=== PATIENT | female | born 2000 ===

== ENCOUNTER 2024-09-28 08:59 | Outpatient (CLI) | payer OTHER | END 2024-09-28 09:00 | disposition home or self-care (01) | LOC: PRENATAL 08:59 | PROVIDERS: ATTEND Obstetrics & Gynecology Maternal & Fetal Medicine | DX: O36.80X0 Pregnancy with inconclusive fetal viability, not applicable or unspecified (principal); Z36.82 Encounter for antenatal screening for nuchal translucency; Z14.8 Genetic carrier of other disease; Z3A.12 12 weeks gestation of pregnancy ==

== ENCOUNTER → 2024-11-18 06:49 | Outpatient (CLI) | payer OTHER | END | disposition home or self-care (01) | LOC: PRENATAL 06:49 | PROVIDERS: ATTEND Obstetrics & Gynecology Maternal & Fetal Medicine | DX: O44.00 Complete placenta previa NOS or without hemorrhage, unspecified trimester (principal); Z3A.20 20 weeks gestation of pregnancy ==

== ENCOUNTER 2024-12-30 09:20 | Outpatient (CLI) | payer OTHER | END 2024-12-30 09:21 | disposition home or self-care (01) | LOC: PRENATAL 09:20 | PROVIDERS: ATTEND Obstetrics & Gynecology Maternal & Fetal Medicine | DX: O26.849 Uterine size-date discrepancy, unspecified trimester (principal); O36.8130 Decreased fetal movements, third trimester, not applicable or unspecified; O28.3 Abnormal ultrasonic finding on antenatal screening of mother; Z3A.26 26 weeks gestation of pregnancy ==

== ENCOUNTER 2025-01-18 20:45 | Outpatient (CLI) | payer OTHER ==
[~2025-01-18] VITALS: Ht 165.1 cm; Wt 75.7 kg
[2025-01-18 21:09] VITALS: BP 109/65
[2025-01-18] MEDS ORDERED: RINGERS SOLUTION,LACTATED 1,000 ML IV SCH (22:00)
[2025-01-18] MEDS ORDERED: FOLIC ACID0.8 M1 PO (22:51)
[2025-01-18] MEDS ORDERED: PRENATAL TABLE1 EAC1 PO (22:51)
[2025-01-18 23:28] VITALS: BP 90/57
[2025-01-19 00:02] LABS: URINE APPEARANCE Cloudy; URINE BILIRRUBIN Negative (NEGATIVE); URINE BLOOD Negative; URINE COLOR Yellow; URINE GLUCOSE Negative (NEGATIVE); URINE KETONE Trace (NEGATIVE); URINE LEUKOCYTE Small; URINE NITRATE Negative; URINE PROTEIN Negative (NEGATIVE); URINE UROBILINOGEN 1.0 E.U./dl
[2025-01-19 00:05] LABS: URINE BACTERIA 3939.4 uL (0.0-1933); URINE EPITHELIAL CELLS 34.6 uL (0.0-38.8); URINE RBC 28.1 uL (0.0-20.8); URINE WBC 230.9 uL (0.0-23.2)
[2025-01-19 00:06] LABS: BASO % 0.3 % (0.1-1.2); EOS # 0.60 (0.04-0.54); EOS % 4.5 % (0.7-7.0); LYMPH # 3.19 (1.18-3.74); LYMPH % 23.9 % (19.3-53.1); MEAN PLATELET VOLUME 10.40 fl (9.4-12.4); MONO # 1.05 (0.24-0.82); MONO % 7.9 % (4.7-12.5); NEUT # 8.41 (1.56-6.13); NEUT % 62.8 % (34.0-71.1); RED CELL DISTRIBUTION WIDTH 12.8 % (11.6-14.4)
[2025-01-19 00:33] LABS: URINE CAST 0.73 uL (0.0-1.40)
[2025-01-19 00:34] LABS: URINE CRYSTALS MODERATE /HPF
[2025-01-19 03:25] VITALS: BP 90/48; O2SAT 100
[2025-01-19 06:20] VITALS: BP 93/59; O2SAT 99
[2025-01-19] MEDS ORDERED: CEFTRIAXONE SODIUM 1,000 MG VIAL IV ONE (09:15)
[2025-01-19 12:00] VITALS: BP 93/59
== END 2025-01-19 11:06 | disposition home or self-care (01) ==
LOC: OBS/DEL 20:45
PROVIDERS: ATTEND Obstetrics & Gynecology
DX: O23.43 Unspecified infection of urinary tract in pregnancy, third trimester (principal); N39.0 Urinary tract infection, site not specified; O26.849 Uterine size-date discrepancy, unspecified trimester; O36.8130 Decreased fetal movements, third trimester, not applicable or unspecified; O26.899 Other specified pregnancy related conditions, unspecified trimester; Z3A.29 29 weeks gestation of pregnancy

== ENCOUNTER → 2025-02-17 09:12 | Outpatient (CLI) | payer OTHER ==
[~2025-02-17 09:12] MED LIST: FOLIC ACID0.8 M1 PO; PRENATAL TABLE1 EAC1 PO
== END | disposition home or self-care (01) ==
LOC: PRENATAL 09:12
PROVIDERS: ATTEND Obstetrics & Gynecology Maternal & Fetal Medicine
DX: O26.843 Uterine size-date discrepancy, third trimester (principal); O36.8130 Decreased fetal movements, third trimester, not applicable or unspecified; Z3A.33 33 weeks gestation of pregnancy

== ENCOUNTER 2025-03-24 09:00 | Inpatient (IN) | payer OTHER ==
[~2025-03-24] VITALS: Ht 165.1 cm; Wt 84.8 kg
[2025-03-30 02:34] VITALS: BP 101/64
[2025-03-30] MEDS ORDERED: RINGERS SOLUTION,LACTATED 1,000 ML IV SCH (03:00)
[2025-03-30] MEDS ORDERED: AMPICILLIN SODIUM 2,000 MG VIAL IV ONE (03:00)
[2025-03-30 03:19] LABS: BASO % 0.3 % (0.1-1.2); EOS # 0.52 (0.04-0.54); EOS % 4.7 % (0.7-7.0); LYMPH # 2.62 (1.18-3.74); LYMPH % 23.5 % (19.3-53.1); MEAN PLATELET VOLUME 10.30 fl (9.4-12.4); MONO # 1.07 (0.24-0.82); MONO % 9.6 % (4.7-12.5); NEUT # 6.84 (1.56-6.13); NEUT % 61.5 % (34.0-71.1); RED CELL DISTRIBUTION WIDTH 12.7 % (11.6-14.4)
[2025-03-30 03:48] LABS: INR < 0.93
[2025-03-30 03:54] LABS: ALT/SGPT 17.0 U/L (12-78); AST/SGOT 17.0 U/L (15-37); BILIRUBIN TOTAL 0.83 mg/dL (0.3-1.2); BUN CREA RATIO 23.0 (7.0-25.0); CREATININE SERUM 0.43 mg/dL (0.55-1.02); GFR 181.96; GLOBULINA 3.5 G/DL (2.4-3.5); GLUCOSE FASTING 79.0 mg/dL (65-100); OSMOLALITY SERUM 279.0 MOSM/KG (275-295)
[2025-03-30] MEDS ORDERED: ERYTHROMYCIN BASE OPHT 1GM EACH TUBE OP ONE (04:35)
[2025-03-30] MEDS ORDERED: CHLORHEXIDINE GLUCONATE 120 ML BOTTLE TOP ONE (04:36)
[2025-03-30] MEDS ORDERED: LIDOCAINE HCL 1% 10ML VIAL ONE (04:36)
[2025-03-30] MEDS ORDERED: OXYTOCIN 20 UNITS/1000ML RL PIGGYBAG IV ONE (04:36)
[2025-03-30] MEDS ORDERED: OXYTOCIN 1,000 ML IV SCH (07:30)
[2025-03-30] MEDS ORDERED: CHLORHEXIDINE GLUCONATE 120 ML BOTTLE TP ONE (07:30)
[2025-03-30] MEDS ORDERED: ACETAMINOPHEN 500 MG GEL..CAP PO PRN (07:30)
[2025-03-30 07:39] VITALS: BP 111/72
[2025-03-30] MEDS ORDERED: AMPICILLIN SODIUM 1,000 MG VIAL IV SCH (08:00)
[2025-03-30] MEDS ORDERED: PNV,CALCIUM 72/IRON/FOLIC ACID 1 TAB TABLET PO SCH (09:00)
[2025-03-30 11:05] VITALS: BP 104/67
[2025-03-30 11:44] LABS: BASO % 0.2 % (0.1-1.2); EOS # 0.11 (0.04-0.54); EOS % 0.6 % (0.7-7.0); LYMPH # 1.55 (1.18-3.74); LYMPH % 9.1 % (19.3-53.1); MEAN PLATELET VOLUME 10.50 fl (9.4-12.4); MONO # 1.12 (0.24-0.82); MONO % 6.6 % (4.7-12.5); NEUT # 14.12 (1.56-6.13); NEUT % 83.1 % (34.0-71.1); RED CELL DISTRIBUTION WIDTH 12.6 % (11.6-14.4)
[2025-03-30 16:00] VITALS: BP 101/62
[2025-03-30 23:42] VITALS: BP 95/60
[2025-03-31] VITALS: BP 100/68
[2025-03-31 17:08] VITALS: BP 107/71
[2025-04-01] VITALS: BP 96/63
[2025-04-01 08:49] VITALS: BP 113/73
== END 2025-04-01 12:10 | disposition home or self-care (01) | DRG 807 ==
LOC: LDR 03-30 02:44 → OB/GYN 03-30 02:44
PROVIDERS: Obstetrics & Gynecology; ADMIT Obstetrics & Gynecology; ATTEND Obstetrics & Gynecology
PROC: 10E0XZZ Delivery of Products of Conception, External Approach (ICD-10-PCS; principal; 2025-03-30)
PROC: 0HQ9XZZ Repair Perineum Skin, External Approach (ICD-10-PCS; 2025-03-30)
PROC: 4A1HXCZ Monitoring of Products of Conception, Cardiac Rate, External Approach (ICD-10-PCS; 2025-03-30)
DX: O70.1 Second degree perineal laceration during delivery (principal); O99.824 Streptococcus B carrier state complicating childbirth; Z37.0 Single live birth; Z3A.38 38 weeks gestation of pregnancy